=== PATIENT | male | born 1990 | race Caucasian/White ===

== ENCOUNTER 2024-08-18 18:27 | Emergency (ER) | payer BC ==
[~2024-08-18] VITALS: Ht 175.3 cm; Wt 54.4 kg
[~2024-08-18 18:27] MED LIST: ALBU90OI61 INH; AMOX500 PO; LEVO750 PO
[2024-08-18 18:39] VITALS: BP 120/89
== END 2024-08-18 20:17 | disposition home or self-care (01) ==
LOC: ER 18:27
DX: S61.212A Laceration without foreign body of right middle finger without damage to nail, initial encounter (principal); S61.214A Laceration without foreign body of right ring finger without damage to nail, initial encounter; F17.210 Nicotine dependence, cigarettes, uncomplicated; Z23 Encounter for immunization; W27.8XXA Contact with other nonpowered hand tool, initial encounter
CPT/HCPCS: 90471; 90715; 99283-25